=== PATIENT | male | born 1955 | race Caucasian/White ===

== ENCOUNTER → 2019-11-01 | Outpatient (REF) | payer MEDICARE, OTHER | LOC: M LAB REF 10:59 | PROVIDERS: ATTEND Physician Assistant Medical | DX: R10.32 Left lower quadrant pain (principal) ==

== ENCOUNTER → 2019-11-15 | Outpatient (REF) | payer MEDICARE, OTHER | LOC: M LAB REF 16:52 | PROVIDERS: ATTEND Physician Assistant Medical | DX: R10.32 Left lower quadrant pain (principal); R10.812 Left upper quadrant abdominal tenderness ==

== ENCOUNTER → 2019-11-23 | Outpatient (CLI) | payer MEDICARE, BC, OTHER ==
--- NOTE | 2019-12-17 13:35 | REP ---
CT/PET REASON FOR EXAM: History of adenocarcinoma of the lung. COMPARISON: Prior CT/PET 12/17/2007 reviewed. That examination showed no abnormal hypermetabolic activity. FINDINGS: After the intravenous administration of 8.05 millicuries of FDG-18, triplane whole body PET/CT was performed from the skull base to the mid thigh. Prior CT scan of the abdomen and pelvis 11/09/2019 reviewed. There is extensive bilateral abnormal hypermetabolic activity seen in multiple supra and infrahyoid neck spaces. In the neck root, there is supra and infraclavicular multifocal hypermetabolic activity. SUV values range in these larger hypermetabolic foci from +10.8 to 3.6 even in the 4 mm sized nodes. There is extensive bilateral axillary hypermetabolic activity in multiple non-enlarged lymph nodes and within enlarged lymph nodes which maintain a reniform shape and fatty hilum. There is left hilar hypermetabolic activity with SUV value of 4.6. There is a single focus of right parasternal hypermetabolic activity along the anterior chest wall in a subpleural fashion measuring 9 mm and having an SUV value of 4.9. There is extensive paraaortic hypermetabolic activity which extends from the paraaortic adenopathy seen on prior CT scan inferiorly along the iliac lymph node chain bilaterally having SUV values from +5 to +3.6 in the abdomen increasing to +11 along the left hemipelvic sidewall and +15 along the right hemipelvic sidewall. In addition, there is bilateral hypermetabolic inguinal adenopathy with SUV values from +7 to +13. There is scattered multifocal hypermetabolic activity seen throughout the axial and appendicular skeleton. No other areas of abnormal hypermetabolic activity seen in the neck, chest, abdomen, or pelvis. IMPRESSION: There is extensive hypermetabolic activity seen in the neck, axillary regions, retroperitoneum, pelvis, and within the axial and appendicular skeleton consistent with metastatic adenocarcinoma. MTDD
== END ==
LOC: M PLARAD 08:00
PROVIDERS: ATTEND Physician Assistant Medical
DX: R93.5 Abnormal findings on diagnostic imaging of other abdominal regions, including retroperitoneum (principal); Z85.118 Personal history of other malignant neoplasm of bronchus and lung
CPT/HCPCS: 78815; A9552

== ENCOUNTER → 2020-01-20 | Outpatient (REF) | payer MEDICARE, BC, OTHER ==
[2020-01-20 17:19] LABS: PHOSPHORUS LEVEL 2.2 MG/DL (2.5-4.9); URIC ACID 5.3 MG/DL (3.5-7.2)
[2020-01-20 17:42] LABS: HEPATITIS B SURFACE ANTIGEN NEGATIVE (NEGATIVE)
[2020-01-22 04:07] LABS: HEPATITIS B CORE ANTIBODY IGG Negative (Negative)
== END ==
LOC: M LAB REF 16:26
PROVIDERS: ATTEND Physician Assistant Medical
DX: C82.18 Follicular lymphoma grade II, lymph nodes of multiple sites (principal)

== ENCOUNTER → 2020-06-19 | Outpatient (REF) | payer MEDICARE, BC, OTHER | LOC: M LAB REF 11:08 | PROVIDERS: ATTEND Physician Assistant Medical | DX: C82.18 Follicular lymphoma grade II, lymph nodes of multiple sites (principal) ==

== ENCOUNTER → 2020-06-22 | Outpatient (CLI) | payer MEDICARE, BC, OTHER ==
[~2020-06-22] MED LIST: GASTROGRAFIN SOLUTION 30ML (Q9963) As Ordered ONE; ISOVUE-370 76% 100ML VIAL As Ordered ONE
--- NOTE | 2020-06-22 11:20 | REP ---
INDICATION: FOLLICULAR LYMPHOMA GRADE II. COMPARISON: 11/08/2020 TECHNIQUE: Axial contrast-enhanced images from the lung bases to the pubic symphysis using oral and 100 cc Isovue 370 intravenous contrast material. Coronal and sagittal reformations obtained. This CT examination was performed using the following dose reduction techniques: Automated exposure control, adjustment of mA and/or kv according to the patient's size, and the use of iterative reconstruction technique. FINDINGS: Hazy stranding through the central mesentery with small central mesenteric lymph nodes is significantly decreased/improved as compared with prior examination. The retroperitoneal soft tissue/adenopathy in a periaortic/pericaval distribution extending primarily towards the right hemipelvis and continuing to surround the right iliac vessels is considerably improved as well. Previously identified groin/inguinal adenopathy has also resolved. No new mass lesions or adenopathy noted. Liver again demonstrates few scattered benign appearing cysts measuring up to 1.8 cm. Left upper quadrant splenules again noted. Pancreas, gallbladder, bilateral adrenal glands and kidneys are relatively normal/stable. Few scattered simple appearing renal cysts are unchanged and again measure up to approximately 2.2 cm diameter. The enteric system is without obstruction or acute inflammatory process. Small hiatal hernia again suggested. Pelvis demonstrates normal bladder and stable age-appropriate prostate/seminal vesicles. No ascites. No free air. Abdominal aorta and vasculature appear normal. Musculoskeletal structures are intact and without acute osseous abnormality. IMPRESSION: 1. Decreased mesenteric stranding and adenopathy as compared with prior examination dated 11/09/2019. No new adenopathy or mass lesion. No ascites. 2. Stable nonacute chronic findings as described above including hepatic and renal benign appearing cysts as well as relatively normal stable appearance to the splenules in the left upper quadrant <Electronically signed by Dayne Curtis > 06/22/20 111
--- NOTE | 2020-06-22 11:38 | REP ---
INDICATION: FOLLICULAR LYMPHOMA GRADE II. COMPARISON: Most recent prior chest CT dated 04/04/2020. TECHNIQUE: Chest CT with IV contrast. FINDINGS: There is an enlarged subcarinal lymph node measuring up to 1.1 cm short axis, unchanged. There is no other mediastinal lymph node enlargement. This is unchanged. There is no hilar or axillary lymph node enlargement. This is unchanged. 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 This is unchanged. There is extensive both replaced with lung parenchyma, particularly in the upper lobes. This is unchanged. There is a calcified granuloma in the superior segment of the left lower lobe, unchanged. There are no other lung nodules or masses. There are no infiltrates or pleural effusions. There are no lytic, blastic or destructive skeletal changes. There is a Schmorl's node in the inferior endplate of the L1 vertebral body, unchanged. 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 IMPRESSION: No change from the prior study. There is a single enlarged subcarinal mediastinal node. There is no other lymph node enlargement. There is bullous emphysema predominantly in the upper lobes, unchanged. Calcified granuloma in the left lower lobe, unchanged. 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 <Electronically signed by Anastacio Almeida > 06/22/20 [id number]
== END ==
LOC: M RAD 09:07
DX: C82.18 Follicular lymphoma grade II, lymph nodes of multiple sites (principal)
CPT/HCPCS: 71260; 74177; Q9963; Q9967

== ENCOUNTER → 2020-10-05 | Outpatient (CLI) | payer MEDICARE, BC, OTHER ==
--- NOTE | 2020-10-05 08:24 | PFTRPT ---
Height: 70.00 Inches Weight: 198.00 Lbs BSA: 2.08 Diagnosis: J44.9 DATE: 10/05/2020 ORDERING PHYSICIAN: Donnell Griffin MD Pre and post bronchodilator studies have excellent technical quality. Forced vital capacity is normal. FEV1 is borderline in proportion. Obstructive index is therefore borderline as well. Expiratory limit of the flow-volume loop does suggest some degree of flow rate limitation. No significant bronchodilator response is identified. Total lung capacity is normal. Residual volume is in proportion. Diffusing capacity although reduced is appropriate for alveolar volume. Hemoglobin is acceptable at 15.3. Airway resistance and conductance are normal. IMPRESSION: Nonspecific flow rate limitation with mild decline in the absolute diffusing capacity. Please correlate clinically. MTDD
== END ==
LOC: M CARPUL 07:40
PROVIDERS: ATTEND Internal Medicine Pulmonary Disease
DX: J44.9 Chronic obstructive pulmonary disease, unspecified (principal)

== ENCOUNTER → 2020-10-23 | Outpatient (CLI) | payer MEDICARE, BC, OTHER ==
[~2020-10-23] MED LIST changes: -GASTROGRAFIN SOLUTION 30ML (Q9963) As Ordered ONE
--- NOTE | 2020-10-23 14:49 | REP ---
INDICATION: LYMPHOMA. COMPARISON: The most recent prior study dated 06/22/2020. TECHNIQUE: The study is performed with IV contrast. FINDINGS: There is an enlarged subcarinal mediastinal lymph node measuring 10.9 mm in diameter, not significantly changed. There is no other mediastinal lymph node enlargement. There is no axillary or hilar lymph node enlargement. This is unchanged. The ascending thoracic aorta is again dilated as previously today measuring 4.4 cm diameter, unchanged. There are no infiltrates or pleural effusions. Extensive bullous replacement of the lung parenchyma is again identified, unchanged. A left lower lobe calcified granuloma is again identified, unchanged. There are no other lung masses or nodules. There are no lytic, blastic or destructive skeletal changes. Schmorl's node is again incidentally identified at the inferior endplate of the L1 vertebral body. 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 IMPRESSION: There is no significant interval change. <Electronically signed by Anastacio Almeida > 10/23/20 [id number]
== END ==
LOC: M RAD 12:38
PROVIDERS: ATTEND Physician Assistant
DX: C82.18 Follicular lymphoma grade II, lymph nodes of multiple sites (principal); M51.46 Schmorl's nodes, lumbar region
CPT/HCPCS: 71260; 74177; Q9967

== ENCOUNTER → 2021-05-23 | Outpatient (CLI) | payer MEDICARE, BC, OTHER ==
[~2021-05-23] MED LIST changes: +GASTROGRAFIN SOLUTION 30ML (Q9963) ONE; -ISOVUE-370 76% 100ML VIAL As Ordered ONE; +ISOVUE-370 76% 100ML VIAL ONE
== END ==
LOC: M PLAIMG 11:59
PROVIDERS: ATTEND Internal Medicine Hematology & Oncology
DX: C82.18 Follicular lymphoma grade II, lymph nodes of multiple sites (principal); K57.30 Diverticulosis of large intestine without perforation or abscess without bleeding; N28.1 Cyst of kidney, acquired; K76.89 Other specified diseases of liver; K86.2 Cyst of pancreas; J44.9 Chronic obstructive pulmonary disease, unspecified; R59.0 Localized enlarged lymph nodes; R91.8 Other nonspecific abnormal finding of lung field
CPT/HCPCS: 71260; 74177; Q9963; Q9967

== ENCOUNTER → 2021-05-31 | Outpatient (CLI) | payer MEDICARE, BC, OTHER ==
[~2021-05-31] MED LIST changes: -GASTROGRAFIN SOLUTION 30ML (Q9963) ONE; -ISOVUE-370 76% 100ML VIAL ONE; +LIDOCAINE 1% MDV 20ML VIAL As Ordered ONE
[2021-05-31 09:40] VITALS: BP 120/79
== END ==
LOC: M IRPRO 08:44
PROVIDERS: ATTEND Internal Medicine Hematology & Oncology
DX: C82.18 Follicular lymphoma grade II, lymph nodes of multiple sites (principal)

== ENCOUNTER → 2021-06-21 | Outpatient (CLI) | payer MEDICARE, BC, OTHER | LOC: M ONCR 13:05 | PROVIDERS: ATTEND General Practice | DX: C82.90 Follicular lymphoma, unspecified, unspecified site (principal); G89.29 Other chronic pain; R53.83 Other fatigue ==

== ENCOUNTER 2021-07-20 09:07 | Outpatient (RCR) | payer MEDICARE, BC, OTHER | END 2021-07-21 | LOC: M ONCR 09:07 | PROVIDERS: ATTEND General Practice | DX: C82.04 Follicular lymphoma grade I, lymph nodes of axilla and upper limb (principal) ==

== ENCOUNTER 2021-07-24 09:05 | Outpatient (RCR) | payer MEDICARE, BC, OTHER | END 2021-08-21 | LOC: M ONCR 09:05 | PROVIDERS: ATTEND General Practice | DX: C82.04 Follicular lymphoma grade I, lymph nodes of axilla and upper limb (principal) ==

== ENCOUNTER → 2021-10-26 | Outpatient (CLI) | payer MEDICARE, BC, OTHER ==
[~2021-10-26] MED LIST changes: +GASTROGRAFIN SOLUTION 30ML (Q9963) As Ordered ONE; +ISOVUE-370 76% 100ML VIAL As Ordered ONE; -LIDOCAINE 1% MDV 20ML VIAL As Ordered ONE
== END ==
LOC: M RAD 11:19
PROVIDERS: ATTEND Internal Medicine Hematology & Oncology
DX: C82.18 Follicular lymphoma grade II, lymph nodes of multiple sites (principal); N28.1 Cyst of kidney, acquired; K76.89 Other specified diseases of liver
CPT/HCPCS: 71260; 74177; Q9963; Q9967

== ENCOUNTER → 2021-11-22 | Outpatient (CLI) | payer MEDICARE, BC, OTHER | LOC: M ONCR 08:54 | PROVIDERS: ATTEND General Practice | DX: C82.04 Follicular lymphoma grade I, lymph nodes of axilla and upper limb (principal); Z92.3 Personal history of irradiation; Z79.899 Other long term (current) drug therapy ==

== ENCOUNTER → 2021-11-26 | Outpatient (REF) | payer MEDICARE, BC, OTHER | LOC: M LAB REF 10:32 | PROVIDERS: ATTEND Physician Assistant | DX: N39.0 Urinary tract infection, site not specified (principal) ==

== ENCOUNTER → 2022-03-11 | Outpatient (REF) | payer MEDICARE, OTHER, BC | LOC: M LAB REF 12:20 | PROVIDERS: ATTEND Physician Assistant Medical | DX: C82.18 Follicular lymphoma grade II, lymph nodes of multiple sites (principal) ==

== ENCOUNTER → 2022-03-15 | Outpatient (CLI) | payer MEDICARE, BC, OTHER ==
[~2022-03-15] MED LIST changes: -GASTROGRAFIN SOLUTION 30ML (Q9963) As Ordered ONE; +GASTROGRAFIN SOLUTION 30ML As Ordered ONE
== END ==
LOC: M RAD 08:04
PROVIDERS: ATTEND Internal Medicine
DX: C82.18 Follicular lymphoma grade II, lymph nodes of multiple sites (principal)
CPT/HCPCS: 71260; 74177; Q9963; Q9967

== ENCOUNTER → 2022-05-20 | Outpatient (CLI) | payer MEDICARE, BC, OTHER ==
[~2022-05-20] MED LIST changes: -GASTROGRAFIN SOLUTION 30ML As Ordered ONE; -ISOVUE-370 76% 100ML VIAL As Ordered ONE; +PROHANCE 279.3MG/ML 15ML VIAL As Ordered ONE; +PROHANCE 279.3MG/ML 5ML VIAL As Ordered ONE
== END ==
LOC: M RAD 15:08
PROVIDERS: ATTEND Nurse Practitioner
DX: C82.18 Follicular lymphoma grade II, lymph nodes of multiple sites (principal); M51.26 Other intervertebral disc displacement, lumbar region; M51.27 Other intervertebral disc displacement, lumbosacral region; M47.816 Spondylosis without myelopathy or radiculopathy, lumbar region; N13.30 Unspecified hydronephrosis
CPT/HCPCS: 72157; 72158; A9576

== ENCOUNTER → 2022-05-22 | Outpatient (CLI) | payer MEDICARE, BC, OTHER | LOC: M RAD 06:30 | PROVIDERS: ATTEND Nurse Practitioner | DX: N28.1 Cyst of kidney, acquired (principal); N28.89 Other specified disorders of kidney and ureter; C82.18 Follicular lymphoma grade II, lymph nodes of multiple sites ==

== ENCOUNTER → 2022-06-10 | Outpatient (CLI) | payer MEDICARE, BC, OTHER | LOC: M PLARAD 12:11 | PROVIDERS: ATTEND Internal Medicine | DX: C82.18 Follicular lymphoma grade II, lymph nodes of multiple sites (principal); J34.1 Cyst and mucocele of nose and nasal sinus; J84.10 Pulmonary fibrosis, unspecified; I70.0 Atherosclerosis of aorta; I25.10 Atherosclerotic heart disease of native coronary artery without angina pectoris; I71.20 Thoracic aortic aneurysm, without rupture, unspecified; K76.89 Other specified diseases of liver; N28.1 Cyst of kidney, acquired | CPT/HCPCS: 78815; A9552 ==

== ENCOUNTER → 2022-07-18 | Outpatient (CLI) | payer MEDICARE, BC, OTHER ==
[~2022-07-18] MED LIST changes: +ISOVUE-370 76% 100ML VIAL As Ordered ONE; -PROHANCE 279.3MG/ML 15ML VIAL As Ordered ONE; -PROHANCE 279.3MG/ML 5ML VIAL As Ordered ONE
== END ==
LOC: M RAD 14:27
PROVIDERS: ATTEND Urology
DX: N13.2 Hydronephrosis with renal and ureteral calculous obstruction (principal); J43.9 Emphysema, unspecified; K76.89 Other specified diseases of liver; N28.1 Cyst of kidney, acquired; M25.78 Osteophyte, vertebrae
CPT/HCPCS: 74178; Q9967

== ENCOUNTER → 2022-12-02 | Outpatient (REF) | payer MEDICARE, BC, OTHER | LOC: M LAB REF 16:52 | PROVIDERS: ATTEND Physician Assistant Medical | DX: C82.18 Follicular lymphoma grade II, lymph nodes of multiple sites (principal) ==

== ENCOUNTER → 2022-12-04 | Outpatient (CLI) | payer MEDICARE, BC, OTHER ==
[~2022-12-04] MED LIST changes: +GASTROGRAFIN SOLUTION 30ML As Ordered ONE
== END ==
LOC: M RAD 15:34
PROVIDERS: ATTEND Internal Medicine
DX: C82.18 Follicular lymphoma grade II, lymph nodes of multiple sites (principal); N28.1 Cyst of kidney, acquired; K76.89 Other specified diseases of liver; I70.0 Atherosclerosis of aorta; I71.21 Aneurysm of the ascending aorta, without rupture; J43.9 Emphysema, unspecified; J84.10 Pulmonary fibrosis, unspecified
CPT/HCPCS: 71250; 74176; Q9963

== ENCOUNTER → 2023-06-02 | Outpatient (CLI) | payer MEDICARE, BC | LOC: M PLARAD 13:31 | PROVIDERS: ATTEND Nurse Practitioner | DX: C82.18 Follicular lymphoma grade II, lymph nodes of multiple sites (principal) | CPT/HCPCS: 78815; A9552 ==

== ENCOUNTER → 2024-01-05 | Outpatient (CLI) | payer MEDICARE, BC | LOC: M PLARAD 07:50 | PROVIDERS: ATTEND Internal Medicine | DX: C82.18 Follicular lymphoma grade II, lymph nodes of multiple sites (principal) | CPT/HCPCS: 78815; A9552 ==

== ENCOUNTER → 2024-07-09 | Outpatient (CLI) | payer MEDICARE, BC | LOC: M PLAIMG 10:05 | PROVIDERS: ATTEND Internal Medicine | DX: C82.18 Follicular lymphoma grade II, lymph nodes of multiple sites (principal); J43.9 Emphysema, unspecified; K86.2 Cyst of pancreas ==

== ENCOUNTER → 2024-09-29 | Outpatient (REF) | payer MEDICARE, BC | LOC: M LAB REF 12:18 | PROVIDERS: ATTEND Physician Assistant Medical | DX: C82.18 Follicular lymphoma grade II, lymph nodes of multiple sites (principal) ==

== ENCOUNTER → 2025-02-22 | Outpatient (CLI) | payer MEDICARE, BC | LOC: M PLARAD 07:36 | PROVIDERS: ATTEND Internal Medicine | DX: C82.18 Follicular lymphoma grade II, lymph nodes of multiple sites (principal) | CPT/HCPCS: 78815; A9552 ==